=== PATIENT | male | born 1980 | race Caucasian/White ===

== ENCOUNTER 2019-11-08 09:45 | Inpatient (IN) | payer MEDICAID ==
[~2019-11-08] VITALS: Ht 167.6 cm; Wt 77.7 kg
[~2019-11-08 09:45] MED LIST: QUET100T PO; QUET25TA PO
[2019-11-08 12:39] LABS: BASOPHILS % (AUTO) 0.6 % (0.0-2.0); EOSINOPHILS % (AUTO) 2.5 % (1.0-6.0); HEMATOCRIT 44.4 % (41-53); HEMOGLOBIN 14.9 g/dL (13.5-17.5); LYMPHOCYTES # (AUTO) 1.8 K/uL (1.0-4.8); LYMPHOCYTES % (AUTO) 16.1 % (22.0-44.0); MEAN CORPUSCULAR HEMOGLOBIN 31.6 pg (26.0-34.0); MEAN CORPUSCULAR HGB CONC 33.6 G/dL (31.0-37.0); MEAN CORPUSCULAR VOLUME 94 fL (80-100); MONOCYTES # (AUTO) 0.8 K/uL (0.1-1.0); MONOCYTES % (AUTO) 7.1 % (2.0-9.0); NEUTROPHILS # (AUTO) 8.1 K/uL (1.8-7.7); NEUTROPHILS % (AUTO) 73.7 % (40.0-70.0); PLATELET COUNT (AUTO) 252 K/uL (150-450); RED BLOOD CELL COUNT(AUTO) 4.73 MIL/uL (4.50-5.90); RED CELL DISTRIBUTION WIDTH 13.8 % (11.5-14.5)
[2019-11-08 12:51] LABS: ANION GAP 10 mmol/L (8-16); CALCIUM, TOTAL 8.7 mg/dL (8.8-10.5); CARBON DIOXIDE 26 mmol/L (22-29); CHLORIDE 105 mmol/L (98-107); CREATININE 0.94 mg/dL (0.60-1.30); GLOMERULAR FILTR. RATE CALC > 60 mL/min (>60); GLUCOSE,RANDOM 125 mg/dL (70-110); POTASSIUM 4.2 mmol/L (3.5-5.1); SODIUM SERUM 141 mmol/L (136-145); UREA NITROGEN, BLOOD 13 mg/dL (7-18)
[2019-11-08 12:57] LABS: ALANINE AMINOTRANSFERASE 28 U/L (12-78); ALBUMIN 3.5 g/dL (3.4-5.0); ALKALINE PHOSPHATASE 64 U/L (46-116); ASPARTATE AMINOTRANSFERASE 18 U/L (15-37); BILIRUBIN,TOTAL 0.3 mg/dL (0.1-1.0); TOTAL PROTEIN, SERUM 6.7 g/dL (6.4-8.2)
[2019-11-08] MEDS ORDERED: LORazepam 2 MG TABLET PO PRN (13:15)
[2019-11-08] MEDS ORDERED: ZOLPIDEM TARTRATE 10 MG TABLET PO PRN (13:15)
[2019-11-08] MEDS ORDERED: HALOPERIDOL 5 MG TABLET PO PRN (13:15)
[2019-11-08 14:55] VITALS: BP 156/92
[2019-11-08 17:48] VITALS: BP 135/76
[2019-11-08 20:39] LABS: AMPHET/METH SCREEN,URINE POSITIVE (NEGATIVE); BARBITURATE SCREEN, URINE NEGATIVE (NEGATIVE); BENZODIAZEPINES SCREEN,URINE NEGATIVE (NEGATIVE); CANNABINOID SCREEN,URINE POSITIVE (NEGATIVE); COCAINE SCREEN,URINE NEGATIVE (NEGATIVE); METHADONE SCREEN, URINE NEGATIVE (NEGATIVE); OPIATE SCREEN,URINE NEGATIVE (NEGATIVE); PHENCYCLIDINE SCREEN,URINE NEGATIVE (NEGATIVE)
[2019-11-09 07:17] LABS: CHOL/HDL RATIO 4.1 (4.2-7.3)
[2019-11-09 08:29] VITALS: BP 125/87
[2019-11-09] MEDS: QUEtiapine FUMARATE 100 MG TABLET PO SCH (20:37)
[2019-11-09] MEDS ORDERED: QUEtiapine FUMARATE 100 MG TABLET PO SCH (21:00)
[2019-11-10 08:00] VITALS: BP 129/68
[2019-11-10 16:35] VITALS: BP 141/58
[2019-11-10] MEDS: QUEtiapine FUMARATE 100 MG TABLET PO SCH (20:10)
[2019-11-11 10:45] VITALS: BP 164/98
[2019-11-11] MEDS ORDERED: QUET100T33 PO (14:52)
== END 2019-11-11 18:15 | disposition home or self-care (01) | DRG 885 ==
LOC: EMS 09:46 → 3EC 13:35
DX: F25.1 Schizoaffective disorder, depressive type (principal); F12.10 Cannabis abuse, uncomplicated; F15.10 Other stimulant abuse, uncomplicated; R03.0 Elevated blood-pressure reading, without diagnosis of hypertension; R73.9 Hyperglycemia, unspecified; F17.210 Nicotine dependence, cigarettes, uncomplicated; F31.9 Bipolar disorder, unspecified; Z79.899 Other long term (current) drug therapy; Z81.8 Family history of other mental and behavioral disorders
CPT/HCPCS: G0480